=== PATIENT | female | born 1980 | race Native Hawaiian/Other Pacific Islander ===

== ENCOUNTER 2018-03-02 13:19 | Outpatient (CLI) | payer BC ==
[2018-03-02 13:40] LABS: PLATELET COUNT 288 K/uL (152-353)
[2018-03-02 14:14] LABS: POTASSIUM 4.2 mmol/L (3.6-5.2)
== END 2018-03-02 19:51 | disposition home or self-care (01) ==
LOC: LAB 13:19
PROVIDERS: Internal Medicine Gastroenterology
DX: K55.1 Chronic vascular disorders of intestine (principal); K63.89 Other specified diseases of intestine; K31.89 Other diseases of stomach and duodenum
CPT/HCPCS: 80053; 83735; 84100; 85027

== ENCOUNTER 2018-03-09 14:55 | Outpatient (CLI) | payer BC ==
[2018-03-09 15:21] LABS: PLATELET COUNT 148 K/uL (152-353)
[2018-03-09 15:42] LABS: POTASSIUM 4.4 mmol/L (3.6-5.2)
== END 2018-03-09 22:45 | disposition home or self-care (01) ==
LOC: LAB 14:55
PROVIDERS: Internal Medicine Gastroenterology
DX: K55.8 Other vascular disorders of intestine (principal); E86.0 Dehydration
CPT/HCPCS: 80053; 83735; 84100; 85027

== ENCOUNTER 2018-04-13 13:38 | Outpatient (CLI) | payer OTHER ==
[2018-04-13 14:34] LABS: PLATELET COUNT 157 K/uL (152-353)
[2018-04-13 14:44] LABS: POTASSIUM 3.8 mmol/L (3.6-5.2)
== END 2018-04-13 20:35 | disposition home or self-care (01) ==
LOC: LAB 13:38
PROVIDERS: Internal Medicine Gastroenterology
DX: K55.1 Chronic vascular disorders of intestine (principal); K63.89 Other specified diseases of intestine; K59.8 Other specified functional intestinal disorders; K31.89 Other diseases of stomach and duodenum
CPT/HCPCS: 80053; 83735; 84100; 85027

== ENCOUNTER 2018-04-20 13:10 | Outpatient (CLI) | payer OTHER ==
[2018-04-20 13:28] LABS: PLATELET COUNT 130 K/uL (152-353)
== END 2018-04-20 22:02 | disposition home or self-care (01) ==
LOC: LAB 13:10
PROVIDERS: Internal Medicine Gastroenterology
DX: K55.1 Chronic vascular disorders of intestine (principal); K63.89 Other specified diseases of intestine; K31.89 Other diseases of stomach and duodenum
CPT/HCPCS: 80053; 83735; 85027

== ENCOUNTER 2018-04-28 13:25 | Outpatient (CLI) | payer OTHER ==
[2018-04-28 13:45] LABS: PLATELET COUNT 200 K/uL (152-353)
== END 2018-04-28 19:56 | disposition home or self-care (01) ==
LOC: LAB 13:25
PROVIDERS: Internal Medicine Gastroenterology
DX: K55.1 Chronic vascular disorders of intestine (principal); K63.89 Other specified diseases of intestine; K59.8 Other specified functional intestinal disorders; K31.89 Other diseases of stomach and duodenum
CPT/HCPCS: 80053; 83735; 84100; 85027

== ENCOUNTER 2018-05-11 12:47 | Outpatient (CLI) | payer OTHER ==
[2018-05-11 13:56] LABS: PLATELET COUNT 153 K/uL (152-353)
[2018-05-11 14:03] LABS: POTASSIUM 3.7 mmol/L (3.6-5.2)
== END 2018-05-11 21:42 | disposition home or self-care (01) ==
LOC: LAB 12:47
PROVIDERS: Internal Medicine Gastroenterology
DX: K59.8 Other specified functional intestinal disorders (principal); K31.89 Other diseases of stomach and duodenum; K55.1 Chronic vascular disorders of intestine; K63.89 Other specified diseases of intestine
CPT/HCPCS: 80053; 83735; 84100; 85027

== ENCOUNTER 2018-06-08 12:32 | Outpatient (CLI) | payer OTHER ==
[2018-06-08 12:57] LABS: PLATELET COUNT 156 K/uL (152-353)
[2018-06-08 13:50] LABS: POTASSIUM 3.9 mmol/L (3.6-5.2)
== END 2018-06-08 19:49 | disposition home or self-care (01) ==
LOC: LAB 12:32
PROVIDERS: Internal Medicine Gastroenterology
DX: K55.1 Chronic vascular disorders of intestine (principal); K63.89 Other specified diseases of intestine
CPT/HCPCS: 80053; 83735; 84100; 85027

== ENCOUNTER 2018-06-22 12:04 | Outpatient (CLI) | payer OTHER ==
[2018-06-22 13:03] LABS: PLATELET COUNT 130 K/uL (152-353)
[2018-06-22 13:14] LABS: POTASSIUM 3.7 mmol/L (3.6-5.2)
== END 2018-06-22 19:59 | disposition home or self-care (01) ==
LOC: LAB 12:04
PROVIDERS: Internal Medicine Gastroenterology
DX: K59.8 Other specified functional intestinal disorders (principal); K31.89 Other diseases of stomach and duodenum; Z79.899 Other long term (current) drug therapy
CPT/HCPCS: 80053; 83735; 84100; 84134; 84478; 85027

== ENCOUNTER 2018-07-06 14:03 | Outpatient (CLI) | payer OTHER ==
[2018-07-06 14:36] LABS: PLATELET COUNT 141 K/uL (152-353)
[2018-07-06 15:33] LABS: POTASSIUM 3.8 mmol/L (3.6-5.2)
== END 2018-07-06 19:25 | disposition home or self-care (01) ==
LOC: LAB 14:03
PROVIDERS: Internal Medicine Gastroenterology
DX: K55.1 Chronic vascular disorders of intestine (principal); K63.89 Other specified diseases of intestine; K59.8 Other specified functional intestinal disorders; K31.89 Other diseases of stomach and duodenum
CPT/HCPCS: 80053; 83735; 84100; 85027